=== PATIENT | female | born 1950 | race Caucasian/White ===

== ENCOUNTER → 2018-05-26 | Outpatient (CLI) | payer MEDICARE ==
--- NOTE | 2018-05-26 14:20 | PCVCIMAG ---
APPROVED REPORT Study performed: 05/26/2018 13:00:22 EXAM: Comprehensive 2D, Doppler, and color-flow Echocardiogram Patient Location: Echo lab Room #: 2Status: routine BSA: 1.67 HR: 82 bpmBP: 162/98 mmHg Rhythm: NSR Other Information Study Quality: Adequate Indications Aortic Valve Disease #21mm Nelson bioprosthetic aortic valve, mitral valve debridement 2D Dimensions IVSd: 12.25 (7-11mm)LVOT Diam: 21.10 (18-24mm) LVDd: 38.63 mm PWd: 10.90 (7-11mm) LVDs: 18.04 (25-40mm) Left Atrium: 39.18 (27-40mm) Aortic Root: 34.07 mm LV Single Plane 4CH: 68.67 % LV Single Plane 2CH: 52.88 % Biplane EF: 61.4 % Volumes Left Atrial Volume (Systole) Single Plane 4CH: 43.90 mLSingle Plane 2CH: 48.37 mL Biplane LA Volume: 47.00 mLLA ESV Index: 28.00 mL/m2 Aortic Valve AoV Peak Stewart.: 2.54 m/s AO Peak Gr.: 27.22 mmHgLVOT Max P.56 mmHg AO Mean Gr.: 15.14 mmHgLVOT Mean P.93 mmHg AO V2 Mean: 1.85 m/sLVOT Max V: 1.13 m/s AO V2 VTI: 59.85 cmLVOT Mean V: 0.81 m/s MELODIE (VTI): 1.44 [id number] V1 VTI: 24.61 cm MELODIE Vmax: 1.56 cm2 SV (LVOT): 85.99 mL Mitral Valve E/A Ratio: 0.7 MV Decel. Time: 273.18 ms MV E Max Stewart.: 0.79 m/s MV A Stewart.: 1.09 m/s IVRT: 114.19 ms TDI E/Lateral E': 8.78E/Medial E': 9.88 Medial E' Stewart.: 0.08 m/s Lateral E' Stewart.: 0.09 m/s Pulmonary Valve PV Peak Stewart.: 0.73 m/sPV Peak Gr.: 2.11 mmHg Pulmonary Vein P Vein S: 0.68 m/sP Vein A: 0.26 m/s P Vein D: 0.43 m/sP Vein A Dur.: 103.8 msec P Vein S/D Ratio: 1.58 Tricuspid Valve TR Peak Stewart.: 2.82 m/s TR Peak Gr.: 31.87 mmHg TV Vmax: 0.69 m/sPA Pressure: 39.00 mmHg Left Ventricle The left ventricle is normal size. There is normal LV segmental wall motion. Mild concentric left ventricular hypertrophy. Mild intra-cavitary gradient is present. Left ventricular systolic function is normal. The left ventricular ejection fraction is within the normal range. LVEF is 60-65%. Grade I - abnormal relaxation pattern. Right Ventricle The right ventricle is normal size. The right ventricular systolic function is normal. Atria The left atrium size is normal. Right atrium is moderately dilated. Aortic Valve A normally functioning #21 Nelson bioprosthetic valve (peak gradient 27 mm, mean gradient 15 mm) Bioprosthetic aortic valve is present. No aortic regurgitation is present. There is no aortic valvular stenosis. Mitral Valve Mild mitral annular calcification There is no mitral valve regurgitation noted. No evidence of mitral valve stenosis. Tricuspid Valve The tricuspid valve is normal in structure. Moderate to severe tricuspid regurgitation with a PA pressure of 40 mmHg. There is mild pulmonary hypertension. Pulmonic Valve The pulmonary valve is normal in structure. There is no pulmonic valvular regurgitation. Great Vessels The aortic root is normal in size. The ascending aorta is normal in size. Aortic arch is normal in caliber. IVC is normal in size and collapses >50% with inspiration. Pericardium There is no pericardial effusion. There is no pleural effusion. <Conclusion> Left ventricular systolic function is normal. Mild concentric left ventricular hypertrophy. Mild intra-cavitary gradient. There is normal LV segmental wall motion. LVEF 60-65%. Mild diastolic dysfunction A normally functioning #21 Nelson bioprosthetic valve (peak gradient 27 mm, mean gradient 15 mm) No aortic regurgitation is present. Mild mitral annular calcification. No mitral valve regurgitation Moderate to severe tricuspid regurgitation with a pulmonary artery pressure of 40 mmHg. There is no pericardial effusion.
== END | disposition home or self-care (01) ==
LOC: PCVCIMAG 13:08
PROVIDERS: ATTEND Internal Medicine
DX: I07.1 Rheumatic tricuspid insufficiency (principal); E78.5 Hyperlipidemia, unspecified; I10 Essential (primary) hypertension; Z79.82 Long term (current) use of aspirin; Z95.2 Presence of prosthetic heart valve; Z87.891 Personal history of nicotine dependence
CPT/HCPCS: 36415; 80061; 93005; 93306; G0463

== ENCOUNTER → 2019-03-22 | Outpatient (CLI) | payer MEDICARE | END | disposition home or self-care (01) | LOC: PCVCCLINIC 13:00 | PROVIDERS: ATTEND Internal Medicine | DX: I10 Essential (primary) hypertension (principal); E78.5 Hyperlipidemia, unspecified; Z95.2 Presence of prosthetic heart valve; Z87.891 Personal history of nicotine dependence; Z88.0 Allergy status to penicillin; Z72.89 Other problems related to lifestyle; Z79.82 Long term (current) use of aspirin; Z79.899 Other long term (current) drug therapy | CPT/HCPCS: 36415; 80061; 93005; G0463 ==